=== PATIENT | female | born 1985 | race Caucasian/White ===

== ENCOUNTER 2016-11-15 06:51 | Emergency (ER) | payer SELFPAY ==
[~2016-11-15] VITALS: Ht 157.5 cm; Wt 54.5 kg
[~2016-11-15 06:51] MED LIST: AMOXICILLIN 50500 MG PO; AMOXICILLIN 8751 TAB PO; AMOXICILLIN875 MG PO; BACTRIM DS 8001 TAB PO; CEPHALEXIN500 M1 PO; CIPRO 250MG TA250 MG PO; CIPRO 500MG TA500 MG PO; CLEOCIN HC150 MG/CAP PO; CLONAZEPAM PO; DESYREL 100MG100 MG PO; DESYREL 50MG50 MG PO; DOXYCYCLINE 10100 MG PO; FLAGYL500 MG PO; FLEXERIL 1010 MG/TAB; FLEXERIL 1010 MG/TAB PO; FLINTSTONES1 CTB PO; IBU800 M1 PO; IRON PILL; KLONOPIN 1MG1 MG PO; LEXAPRO5 MG PO; LORTAB 5/500 501 TAB PO; LORTAB 7.5/5001 TAB PO; MACROBID 1100 MG/CAP PO; MACROBID100 MG PO; METRONIDAZOLE500 MG PO; MOTRIN 200200 MG/TAB PO; MULTI VITAMIN W PO; MULTIPLE VITAMI1 CAP PO; NAPROSYN 2250 MG/TAB PO; NAPROSYN500 MG PO; NO HOME MEDICATIONS; NORCO 325 MG-51 TAB PO; NORCO 325 MG-7.1 TAB PO; PEN-VEE K500 MG PO; PERCOCET 325 MG1 TA2 PO; PRENATAL VITAMI1 TA5 PO; PRENATAL1 TA6 PO; PYRIDIUM200 M1 PO; REGLAN10 MG PO; TRAZODONE; ULTRAM 50MG TAB50 MG; ULTRAM 50MG TAB50 MG PO; VICOPROFEN 7.51 TAB PO; ZITHROMAX 250M250 MG PO
[2016-11-15 06:53] VITALS: TEMP 98.1
[2016-11-15] MEDS ORDERED: NORCO 325 MG-51 TAB PO (08:09)
[2016-11-15 08:10] VITALS: BP 94/79
[2016-11-15 08:30] VITALS: PULSE 64
== END 2016-11-15 08:30 | disposition home or self-care (01) ==
LOC: COL.ER 06:51
DX: M24.412 Recurrent dislocation, left shoulder (principal)
CPT/HCPCS: J1170; J2405; J2704; J7030

== ENCOUNTER 2021-01-06 15:27 | Emergency (ER) | payer SELFPAY ==
[~2021-01-06] VITALS: Ht 157.5 cm; Wt 56.8 kg
[2021-01-06 15:36] VITALS: TEMP 98
[2021-01-06 16:33] LABS: BASO % 0.2 % (0.0-2.0); EOS # 0.2 (0.0-0.7); EOS % 1.9 % (0-4.0); GRAN # 5.5 (1.4-6.5); GRAN % 57.7 % (42.2-75.2); HEMOGLOBIN 10.6 g/dl (12.5-16.0); LYMPH # 2.8 (1.2-3.4); MEAN CELL VOLUME 82 fl (80.0-100.0); MEAN CORPUSCULAR HEMOGLOBIN 26 pg (27.0-31.0); MEAN CORPUSCULAR HGB CONC 32 g/dl (33.0-37.0); MEAN PLATELET VOLUME 8.3 fl (7.4-10.4); MONO % 10.9 % (1.7-9.3); PLATELET COUNT 508 K/mm3 (130-400); RED BLOOD COUNT 4.08 M/mm3 (4.10-5.30); REDCELL DISTRIBUTION WIDTH-CV 17.1 % (11.5-14.5)
[2021-01-06 16:39] LABS: CALCIUM 9.5 mg/dL (8.4-10.2); CREATININE, serum 0.71 (0.52-1.25); POTASSIUM 3.4 mmol/L (3.4-5.0)
[2021-01-06 16:40] LABS: HEMATOCRIT 33.4 % (37.0-47.0)
[2021-01-06 17:04] LABS: COLLECTION METHOD CLEAN CATCH
[2021-01-06 18:17] LABS: PH 6 (5-8); SQUAMOUS EPITHELIAL 0-2 /hpf; URINE APPEARANCE Clear; URINE BACTERIA Rare /hpf; URINE BILIRUBIN Negative (NEGATIVE); URINE BLOOD 2+ (NEGATIVE); URINE COLOR Straw; URINE GLUCOSE Negative (NEGATIVE); URINE KETONE Negative (NEGATIVE); URINE LEUKOCYTE ESTERASE Negative (NEGATIVE); URINE NITRATE Negative (NEGATIVE); URINE PROTEIN(semi-quant) Negative (NEGATIVE); URINE RBC >50 /hpf; URINE UROBILINOGEN Negative (NEGATIVE)
[2021-01-06] MEDS ORDERED: DOXYCYCLINE 10100 MG PO (18:42)
[2021-01-06] MEDS ORDERED: FLAGYL500 MG PO (18:42)
[2021-01-06] MEDS ORDERED: SPRINTEC 35 MCG1 TAB PO (18:44)
[2021-01-06 18:55] VITALS: BP 120/88; PULSE 80
== END 2021-01-06 18:55 | disposition home or self-care (01) ==
LOC: COL.ER 15:27
PROVIDERS: Emergency Medicine
DX: N93.9 Abnormal uterine and vaginal bleeding, unspecified (principal); Z88.5 Allergy status to narcotic agent
CPT/HCPCS: J0696